=== PATIENT | female | born 2005 | race Caucasian/White ===

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

== ENCOUNTER 2023-08-12 02:59 | Emergency (ER) | payer MEDICAID, OTHER ==
[~2023-08-12] VITALS: Ht 167.6 cm; Wt 52.2 kg
[2023-08-12] MEDS ORDERED: DEXAMETHASONE 0.5 MG/5 ML LIQ UDC PO ONE (03:30)
[2023-08-12] MEDS ORDERED: diphenhydrAMINE 25 MG CAP PO ONE ×2 (03:30→03:34)
[2023-08-12] MEDS ORDERED: DEXAMETHASONE 4 MG TABLET ONE (03:34)
[2023-08-12] MEDS ORDERED: OXYC-128 PO (03:39)
[2023-08-12] MEDS ORDERED: ONDA4TAB5 PO (03:39)
[2023-08-12] MEDS ORDERED: DEXAMETHASONE 4 MG TABLET PO ONE (03:45)
[2023-08-12 03:50] VITALS: BP 108/65; TEMP 98.7; O2SAT 100
== END 2023-08-12 03:51 | disposition home or self-care (01) ==
LOC: ER 03:07
DX: R51.9 Headache, unspecified (principal); T39.315A Adverse effect of propionic acid derivatives, initial encounter; T39.1X5A Adverse effect of 4-Aminophenol derivatives, initial encounter; Y92.89 Other specified places as the place of occurrence of the external cause
CPT/HCPCS: A4606; A4663; J8540; Q0163